=== PATIENT | female | born 1975 | race Caucasian/White ===

== ENCOUNTER 2019-02-24 08:15 | Inpatient (IN) | payer OTHER ==
[~2019-02-24] VITALS: Ht 165.1 cm; Wt 90.7 kg
[2019-02-24] MEDS ORDERED: SYNTHROID125 MCG (09:42)
== END 2019-02-28 10:05 | disposition home or self-care (01) | DRG 743 ==
LOC: O/R 02-27 05:30 → OB/GYN 02-27 05:30 → O/R 02-27 07:00 → OB/GYN 02-27 10:34
PROVIDERS: ADMIT Obstetrics & Gynecology Gynecologic Oncology
PROC: 0UT14ZZ Resection of Left Ovary, Percutaneous Endoscopic Approach (ICD-10-PCS; principal; 2019-02-27 07:00)
DX: D27.1 Benign neoplasm of left ovary (principal); D25.1 Intramural leiomyoma of uterus; N83.8 Other noninflammatory disorders of ovary, fallopian tube and broad ligament; R97.1 Elevated cancer antigen 125 [CA 125]; E03.8 Other specified hypothyroidism